=== PATIENT | female | born 1990 | race Caucasian/White ===

== ENCOUNTER 2016-06-23 18:38 | Emergency (ER) | payer BC, OTHER ==
--- NOTE | 2016-06-23 19:02 | EDPHY ---
H & P Time Seen by Provider: 06/23/16 18:48 HPI/ROS: CHIEF COMPLAINT: Laceration left middle digit HISTORY OF PRESENT ILLNESS: 26-year-old [id number] female with up-to- date tetanus sustained accidental laceration from a broken glass to her left middle digit proximal phalanx radial aspect while she was at work. She is complaining of decreased sensation distally on same side. No foreign body sensation. Occurred shortly prior to arrival PHYSICAL EXAM (Prior to examination, patient consented to physical exam, hands were washed and my usual and customary physical exam procedures followed) 1) GENERAL: Well-developed, well-nourished, alert and oriented. Appears to be in no acute distress. 2) HEAD: Normocephalic 3) HEENT: sclera anicteric 4) LUNGS: Breathing comfortably. 5) SKIN: left middle digit proximal phalanx radial aspect 3 mm laceration. 6) MUSCULOSKELETAL: flexion extension at the MCP PIP DIP intact no deficits 7) NEUROLOGIC: Decreased sensation distally on the radial aspect Smoking Status: Never smoked Constitutional: Initial Vital Signs Temperature (C) 36.9 C 06/23/16 18:41 Heart Rate 72 06/23/16 18:41 Respiratory Rate 14 06/23/16 18:41 Blood Pressure 124/77 H 06/23/16 18:41 O2 Sat (%) 94 06/23/16 18:41 O2 Delivery Mode Room Air Allergies/Adverse Reactions: amoxicillin [Amoxicillin] Allergy (Verified 06/23/16 18:41) Home Medications: Medication Instructions Recorded FLUoxetine [Prozac 20 MG (*)] 60 mg PO DAILY 03/06/12 Norgestimate-Ethinyl Estradiol 1 each PO DAILY 03/06/12 [Ortho Tri-Cyclen] Supply Controller Completed 03/06/12 03/06/12 clonazePAM [Klonopin (*)] 0.5 mg PO DAILY 03/06/12 clonazePAM [Klonopin (*)] 1 mg PO HS 03/06/12 lamoTRIgine [LamICTAL 100 MG (*)] 100 mg PO DAILY 03/06/12 MDM/Departure - [facility] Diagnostics: Left third finger series 3 views 1933 hours. History: Laceration. Evaluate for foreign body. Findings: There is no evidence of radiopaque foreign body in the soft tissues left third digit. Osseous structures are intact without fracture. No significant gas is seen in the soft tissues. There is some swelling. Impression: 1. No radiopaque foreign body left third digit. 2. No acute osseous abnormality seen. Dictated By: Yovany Becker MD Images reviewed by myself Procedures: Procedure: Laceration repair. I explained the indications, risks and benefits for both laceration repair and anesthetic administration. Verbal consent was obtained from the patient . The laceration on the left middle digit was anesthetized using 0.5% bupivicaine without epinephrine . After anesthetic administered the patient was observed for a period of time and had no apparent adverse effects. The wound was cleaned , prepped, draped in normal sterile fashion and explored to its base. No foreign body seen, no foreign bodies palpated. There were no deep structures involved. No tendon injury was identified. The wound was repaired with 1 simple interrupted 5 0 Prolene suture. The wound repair was simple. The procedure was performed by myself. Patient has been informed that scarring will occur, although efforts have been made to minimize this. Procedure: Splint An aluminum fingersplint was applied by ER licensed psychiatric technician. After application of the splint I returned and re-examined the patient. The splint was adequately immobilizing the joint and distal to the splint the patient's circulation and sensation were intact. Patient shows no signs of compartment syndrome. Was given orthopedic precautions. ED Course/Re-evaluation: Patient has decreased sensation on the affected side of her laceration. She has been informed that nerve injury is not ruled out. I do not think that emergent hand consultation indicated however I have recommended she follow up with her work comp provider and recommend she follow up with a hand surgeon as well however recommend she see her work comp provider 1st. She has been given the name of the the hand surgeon on-call Dr. Renee Valdez. - Depart Disposition: Home, Routine, Self-Care Clinical Impression: Left middle digit laceration Condition: Good Instructions: Care For Your Stitches (ED), Laceration (ED) Additional Instructions: Return to the ER if you develop redness, swelling, discharge, warmth to the wound, red streaks going up your arm , or any other symptoms that concern you. Sutures to be removed in 10 days Stand Alone Forms: Work Comp Follow Up Referrals: Renee Valdez MD [Medical Doctor] - 2-3 days, call for appt. (Dr. Renee Valdez is a hand surgeon. Recommend he see a hand surgeon however I recommend you consult with your work comp provider 1st.)
[2016-06-23 19:53] VITALS: BP 104/72; PULSE 69; RESP 18; TEMP 98.8; O2SAT 99
== END 2016-06-23 20:04 | disposition home or self-care (01) ==
PROC: 0HQGXZZ Repair Left Hand Skin, External Approach (ICD-10-PCS; principal; 2016-06-23)
DX: S61.213A Laceration without foreign body of left middle finger without damage to nail, initial encounter (principal); W25.XXXA Contact with sharp glass, initial encounter; Y92.69 Other specified industrial and construction area as the place of occurrence of the external cause; Y99.0 Civilian activity done for income or pay
CPT/HCPCS: L3925